=== PATIENT | male | born 2000 | race American Indian/Alaskan Native ===

== ENCOUNTER 2020-01-07 21:29 | Emergency (ER) | payer OTHER ==
[2020-01-07 21:52] VITALS: BP 148/72
[2020-01-08] MEDS ORDERED: HYDROcodone/ACETAMINOPHEN 5-325 MG TAB PO STA (01:13)
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
[2020-01-08] MEDS ORDERED: ACETAMINOPHEN 325 MG TAB ONE (02:31)
[2020-01-08] MEDS ORDERED: IBUPROFEN 600 MG TAB PO ONE ×2 (02:31→02:34)
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
[2020-01-08] MEDS ORDERED: ACETAMINOPHEN 325 MG TAB PO ONE (02:34)
== END 2020-01-08 02:40 | disposition home or self-care (01) ==
LOC: ED 21:29
DX: M25.532 Pain in left wrist (principal); M54.5 Low back pain; Z79.899 Other long term (current) drug therapy